=== PATIENT | male | born 1950 | race Caucasian/White ===

== ENCOUNTER 2024-07-24 20:41 | Emergency (ER) | payer MEDICARE, OTHER ==
[2024-07-24 21:01] VITALS: TEMP 96.7
[2024-07-24] MEDS ORDERED: Sodium Chloride 0.9% 1000 ML 1,000 ML ONE (21:19)
[2024-07-24] MEDS: Sodium Chloride 0.9% 1000 ML 1,000 ML IV STA (21:20)
[2024-07-24 21:22] LABS: Absolute Neutrophil Ct (ANC) 4.92 x10^3/uL (1.78-5.38); BASOPHIL % 0.6 % (0.2-1.2); Basophil (Absolute #) 0.05 x10^3/uL (0.01-0.08); Eosinophil % 3.1 % (0.8-7.0); Eosinophil (Absolute #) 0.25 x10^3/uL (0.04-0.54); Hematocrit 45.9 % (40.1-51.0); Hemoglobin 14.4 g/dL (13.7-17.5); IMMATURE GRAN # 0.03 x10^3u/L (0.001-0.031); IMMATURE GRAN % 0.4 % (0.001-0.429); Lymphocyte (Absolute #) 2.12 x10^3/uL (1.32-3.57); Lymphocytes % 25.9 % (21.8-53.1); Mean Cell Volume 89.6 fL (79.0-92.2); Mean Corpuscular Hemoglobin 28.1 pg (25.7-32.2); Mean Corpuscular Hgb Concent. 31.4 g/dL (32.3-36.5); Mean Platelet Volume 10.3 fL (9.4-12.4); Monocyte (Absolute #) 0.81 x10^3/uL (0.30-0.82); Monocytes % 9.9 % (5.3-12.2); Neutrophil % 60.1 % (34.0-67.9); Platelet Count 181 x10^3/uL (163-337); Red Blood Count 5.12 x10^6/uL (4.63-6.08); Red Cell Distribution Width 14.2 % (11.6-14.4); White Blood Count 8.2 x10^3/uL (4.23-9.07)
--- NOTE | 2024-07-24 21:35 | ERPHSYRPT ---
- History of Present Illness Source: patient Exam Limitations: no limitations Patient Subjective Stated Complaint: Pt. states, "I took an extra blood pressure pill this evening because I forgot to take it yesterday and I've been under some stress so I thought my bp might be high. 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 I sat down and passed out for a minute. I'm also having pain in my left lower back." Triage Nursing Assessment: pt. arrives via EMS, A&Ox4, Skin pale, warm and dry, resp. even unlabored, no cough noted, no edema, able to move all four ext. Physician History: Patient has syncopal episode. He said that he took an extra blood pressure medicine earlier in the evening because he thought it might help with his anxiety. 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 While he was sitting with the members of the [employer] he got lightheaded and passed out. He is only out for a few seconds. He did not fall or hit his head very hard. He did not have any palpitations or anything before that. He was alert and oriented whenever he came to. He said he got sweaty and a little nauseous. That went away. He says he feels back to normal. When he got here he was a little bit hypotensive. His systolic was right around the 100. He was asymptomatic th gh. He does not have any chest pain. He has no focal neurological deficits. He has not had syncopal episodes before. He has never taken double his blood pressure medicine dose in the past. Allergies/Adverse Reactions: No Known Drug Allergies Allergy (Unverified 07/06/15 11:30) Home Medications: lisinopriL [Lisinopril] 5 mg PO DAILY 07/24/24 [History] Hx Tetanus, Diphtheria Vaccination/Date Given: No Hx Influenza Vaccination/Date Given: No Hx Pneumococcal Vaccination/Date Given: No Immunizations Up to Date: No Travel Risk - International Travel Have you traveled outside of the country in past 3 weeks: No - Emerging Infectious Disease Are you exhibiting symptoms associated with any current EIDs: No - Past Medical History Pertinent Past Medical History: No Neurological History: No Pertinent History ENT History: No Pertinent History Cardiac History: Hypertension Respiratory History: No Pertinent History Endocrine Medical History: No Pertinent History Musculoskeletal History: No Pertinent History GI Medical History: No Pertinent History History: No Pertinent History Psycho-Social History: No Pertinent History Male Reproductive Disorders: No Pertinent History - Past Surgical History Past Surgical History: No - Social History Smoking Status: Never smoker Exposure to second hand smoke: No Drug Use: none - Social Determinants of Health Will the patient participate in the screening: Declined to provide - Review of Systems Constitutional: No Symptoms Eyes: No Symptoms Ears, Nose, & Throat: No Symptoms Respiratory: No Symptoms Cardiac: Syncope Abdominal/Gastrointestinal: No Symptoms Skin: No Symptoms Neurological: No Symptoms All Other Systems: Reviewed and Negative Physical Exam - Nursing Vital Signs Nursing Vital Signs: Initial Vital Signs Temperature 96.7 F 07/24/24 20:49 Pulse Rate 72 07/24/24 20:49 Respiratory Rate 16 07/24/24 20:49 Blood Pressure 107/42 07/24/24 20:49 O2 Sat by Pulse Oximetry 96 07/24/24 20:49 Pain Scale Pain Intensity 2 - Lamar Coma Scale Best Eye Response (Lamar): (4) open spontaneously Best Verbal Response (Ramesh): (5) oriented Best Motor Response (Ramesh): (6) obeys commands Lamar Total: 15 - Physical Exam General Appearance: no apparent distress Ears, Nose, Throat Exam: normal ENT inspection, TMs normal Respiratory: normal breath sounds, chest tenderness, lungs clear, No respiratory distress Cardiovascular: regular rate/rhythm, normal heart sounds, normal peripheral pulses Gastrointestinal: soft, normal bowel sounds, tenderness Back Exam: normal inspection Mental Status: alert, oriented x 3, cooperative assistant therapy aide Exam: normal hearing, normal speech, PERRL Coordination/Gait: normal finger to nose, normal gait Skin Exam: normal color SpO2: 96 Ordered Tests: Active Orders 24 hr Category Date Time Status EKG-ER Only STAT Care 07/24/24 20:51 Active BMP Stat Lab 07/24/24 21:10 Completed CBC W DIFF Stat Lab 07/24/24 21:10 Completed TROPONIN Stat Lab 07/24/24 23:01 Completed Medication Summary Discontinued Medications Generic Name Dose Route Start Last Admin Trade Name Freq PRN Reason Stop Dose Admin Sodium Chloride 1,000 mls @ 999 mls/hr 07/24/24 20:46 07/24/24 22:20 Sodium Chloride 0.9% 1000 Ml IV 07/24/24 21:46 Infused .Q1H1M STA Infusion Sodium Chloride Confirm 04/12/25 21:19 Sodium Chloride 0.9% 1000 Ml Administered 07/24/24 21:20 Dose 1,000 mls @ .ROUTE .[facility] Lab/Rad Data: Laboratory Result Diagrams 07/24/24 21:10 07/24/24 21:10 Laboratory Results 07/24/24 07/24/24 07/24/24 Range/Units 23:01 21:10 21:10 WBC 8.2 (4.23-9.07) x10^3/uL RBC 5.12 (4.63-6.08) x10^6/uL Hgb 14.4 (13.7-17.5) g/dL Hct 45.9 (40.1-51.0) % MCV 89.6 (79.0-92.2) fL MCH 28.1 (25.7-32.2) pg MCHC 31.4 L (32.3-36.5) g/dL RDW 14.2 (11.6-14.4) % Plt Count 181 (163-337) x10^3/uL MPV 10.3 (9.4-12.4) fL Gran % 60.1 (34.0-67.9) % Immature Gran % (Auto) 0.4 (0.001-0.429) % Nucleat RBC Rel Count 0.0 (0.00-0.2) % Eos # (Auto) 0.25 (0.04-0.54) x10^3/uL Immature Gran # (Auto) 0.03 (0.001-0.031) x10^3u/L Absolute Lymphs (auto) 2.12 (1.32-3.57) x10^3/uL Absolute Monos (auto) 0.81 (0.30-0.82) x10^3/uL Absolute Nucleated RBC 0.00 (0.00-0.012) x10^3u/L Lymphocytes % 25.9 (21.8-53.1) % Monocytes % 9.9 (5.3-12.2) % Eosinophils % 3.1 (0.8-7.0) % Basophils % 0.6 (0.2-1.2) % Absolute Granulocytes 4.92 (1.78-5.38) x10^3/uL Basophils # 0.05 (0.01-0.08) x10^3/uL Sodium 139 (135-145) mmol/L Potassium 3.9 (3.5-5.1) mmol/L Chloride 104 (98-107) mmol/L Carbon Dioxide 17 L (22-30) mmol/L Anion Gap 22.0 H (5-15) MEQ/L BUN 19 (9-20) mg/dL Creatinine 1.15 (0.66-1.25) mg/dL Estimated GFR 66.0 ML/MIN Glucose 165 H (74-106) mg/dL Calcium 9.2 (8.4-10.2) mg/dL Troponin I 0.014 (0.000-0.033) ng/mL - Progress Progress Note: Patient's initial troponin was a little bit bumped it was 0.036. We repeated it it was down to 0.014. His EKG showed no acute changes. His lab work all look good. He got a liter of fluids and was feeling better. I think that he just took too much of his blood pressure medicine. I do not think it was a cardiac event. He is not having tachycardia or anything suggestive of a pulmonary embolism.At this time I think we have a reasonable etiology. He doubled up on his cardiac medicines and had a vasovagal episode. His blood pressure was a little soft while he was here. It improved with some IV fluids. 07/25/24 00:26 07/25/24 00:27 Medical Desision Making - Diagnostic Testing Diagnostic test were ordered, analyzed, and reviewed by me: Yes Radiological Interpretation: Interpreted by me - Risk of complications Minimal Risk: Minimal risk of morbidity - Departure Departure Disposition: Home Clinical Impression: Vasovagal episode Condition: Stable Critical Care Time: No Referrals: JAZZMINE MO MD [Primary Care Provider] - Follow up/PCP as directed Instructions: Syncope (Fainting) (DC)
[2024-07-24 21:36] LABS: Calcium 9.2 mg/dL (8.4-10.2); Creatinine 1 1.15 mg/dL (0.66-1.25); Potassium 3.9 mmol/L (3.5-5.1)
[2024-07-25 00:45] VITALS: BP 140/105; PULSE 65; RESP 24; O2SAT 97
== END 2024-07-25 00:38 | disposition home or self-care (01) ==
LOC: ED 20:41
DX: R55 Syncope and collapse (principal); I10 Essential (primary) hypertension; Z79.899 Other long term (current) drug therapy
CPT/HCPCS: 36415; 80048; 84484; 85025; 93005; 96360; 96374; 99284